=== PATIENT | female | born 1955 | race Caucasian/White ===

== ENCOUNTER 2017-03-26 10:03 | Outpatient (CLI) | payer BC ==
[2014-08-19 11:05] VITALS: BMI 41.9
--- NOTE | ~2017-03-26 | OP ---
PATIENT NAME: YELENA QUINTERO MEDICAL RECORD: [id number] :55 LOCATION:[facility] ADMISSION DATE: SURGEON: DALLAS LEUNG MD OPERATION DATE: 03/26/17 PROCEDURES: 1. Percutaneous transluminal coronary angioplasty stent left anterior descending. 2. Percutaneous transluminal coronary angioplasty stent right coronary artery. 3. Intravascular ultrasound left anterior descending and right coronary artery. 4. Left heart catheterization. 5. Selective coronary angiography. 6. Left ventriculogram. INDICATION: Unstable angina. PROCEDURE IN DETAIL: After informed consent was obtained and after detailed explanation of risks, benefits, as well as alternative therapies, the patient elected to proceed with angiogram and angioplasty. The right radial area was prepped and draped in a normal sterile fashion. The right radial artery was cannulated via modified Seldinger technique with placement of 6-Luxembourgish sheath. All catheters exchanged through this sheath. FINDINGS: Left ventriculogram was performed in standard 30 degree SEN view, reveals good cardiac wall motion throughout all segments. Overall ejection fraction estimated at 60%. SELECTIVE CORONARY ANGIOGRAPHY: 1. Left main is with no significant angiographic disease. 2. Left anterior descending has a 65-70% stenosis proximally confirmed by intravascular ultrasound. 3. Left circumflex shows mild irregularities but no flow-limiting stenosis. 4. The right coronary artery has a 75% stenosis in the mid vessel confirmed by intravascular ultrasound. PTCA STENT OF THE LEFT ANTERIOR DESCENDING AND RIGHT CORONARY ARTERY: The left anterior descending was addressed with a 3.5 X 22 millimeter Woodrow, the right coronary artery with a 3.5 X 18 millimeter Woodrow. The result was 0% residual stenosis. OVERALL IMPRESSION: Successful percutaneous transluminal coronary angioplasty stent of the right coronary artery and left anterior descending both coming from approximately 70-75% initial stenosis to 0% residual stenosis. DALLAS LEUNG MD CC: [id number] DICTATION DATE: 03/26/17 1400 NUCLEAR UNIT OPERATOR: DM 03/27/17 1237 [facility] ER 03/26/17 [facility] [address] [place] [address]
--- NOTE | ~2017-03-26 | HEMODYNAMI ---
PATIENT:YELENA QUINTERO MEDICAL RECORD: [id number] : 55 [id number] AD[facility]ION DATE: 03/26/17 Generatedon:03/26/201712:12 Patient name: YELENA QUINTERO Patient #: [id number] SSN: DO B: 1955 Date of study: 03/26/2017 Page: Of Hemodynamic Procedure Report Patient Data Patient Demographics Procedure consent was obtained First Name: YELENA Gender: Female Last Name: INGRID : 1955 [facility] Initial: G Age: 61 year(s) Patient #: [id number] Race: Ethnicity: or Additional ID: [id number] Contact details [address]: [address] [place] [address] State: [place] City: [place] Zip code: [address] Past Medical History Allergies: No known allergies Admission Admission Data Admission Date: 03/26/2017 Admission Time: 9:24 Procedure Procedure Types Cath Procedure Diagnostic Procedure LHC LHC w/Coronaries FFR/IVUS Intra-Coronary IVUS Initial Intra-Coronary IVUS Additional PCI Procedure Coronary Stent Initial x2 Miscellaneous Procedures Moderate Sedation up to 15 minutes Procedure Description Procedure Date Procedure Date: 03/26/2017 Procedure Start Time: 11:41 Procedure End Time: 12:11 Procedure Staff Name Function Jimmy Scherer MD Performing Physician Mauro Deras RT Scrub Breanna Madrigal RN Nurse Patrice Llamas RT Monitor Kali Treviño RN Icing Maker Procedure Data Cath Procedure Fluoroscopy Diagnostic fluoroscopy Total fluoroscopy Time: 6.7 time: 6.7 min min Diagnostic fluoroscopy Total fluoroscopy dose: dose: 1231 mGy 1231 mGy Contrast Material Contrast Material Type Amount (ml) Isovue 300 150 Entry Location Entry Primary Successful Side Size Upsize Upsize Entry Closure Garcia ccessful Closure Location (Fr) 1 (Fr) 2 (Fr) Remarks Device Remarks Radial Right 6 Fr Mechanical artery Short Compression Estimated blood loss: 10 ml Diagnostic catheters Device Type Used For End Catheter Placement Diagnostic Terumo 5Fr Procedure [place] 110cm catheter Procedure Medications Medication Administration Route Dosage Oxygen NC 2 l/min Heparin Flush Bag added to field 2 bags (1000units/500ml NS) Lidocaine 2% added to field 20 Radial Cocktail added to field 1 syringe (Verapomil 2mg/Nitro 400mcg/Heparin 1500units) Radial Cocktail I.A. 1 syringe (Verapomil 2mg/Nitro 400mcg/Heparin 1500units) Versed I.V. 1 mg Fentanyl I.V. 50 mcg Versed I.V. 1 mg Fentanyl I.V. 50 mcg Fentanyl I.V. 50 mcg Heparin Bolus I.V. 4000 units Integrilin (Bolus I.V. 10.7 ml 2mg/ml) Plavix P.O. 600 mg Hemodynamics Rest Heart Rate: 56 (bpm) Pressure Samples Time Site Value (mmHg) Purpose Heart Use Rate(bpm) 11:46 LV 106/20,21 Snapshot 58 Snapshots Pre Cath Intra NCS Post Cath Vital Signs Time Heart Resp SPO2 NIBP (mmHg) Rhythm Pain Status Sedation Rate (ipm) (%) Level (bpm) 11:34:18 56 16 98 118/84(104) NSR 5 (11) , 10(A) Very distressing 11:39:17 57 18 96 Measuring NSR 0 (11) , No 10(A) pain 11:39:21 57 20 96 141/72(123) NSR 0 (11) , No 10(A) pain 11:44:20 58 16 95 Measuring NSR 0 (11) , No 10(A) pain 11:44:28 58 16 95 141/74(106) NSR 0 (11) , No 9(A) pain 11:48:38 57 19 95 138/73(102) NSR 0 (11) , No 9(A) pain 11:52:52 57 16 96 143/70(116) NSR 0 (11) , No 9(A) pain 11:57:06 60 16 96 153/72(116) NSR 0 (11) , No 9(A) pain 12:01:24 58 13 96 152/75(106) NSR 0 (11) , No 9(A) pain 12:05:34 63 19 96 147/80(118) NSR 0 (11) , No 9(A) pain 12:08:30 64 20 97 160/78(116) NSR 0 (11) , No 10(A) pain Medications Time Medication Route Dose Verified Delivered Reason Note s Effectiveness by by 11:38:06 Oxygen NC 2 l/min Jimmy Breanna Per physician Niesha Madrigal RN 11:38:13 Heparin Flush added 2 bags Jimmy Marquez used for Bag to Niesha Scherer MD procedure (1000units/500ml field NS) 11:38:19 Lidocaine 2% added 20ml Jimmy Jimmy used for to vial Niesha Scherer MD procedure field 11:38:26 Radial Cocktail added 1 Jimmy Marquez used for (Verapomil to syringe Niesha Scherer MD procedure 2mg/Nitro field 400mcg/Heparin 1500units) 11:40:39 Versed I.V. 1 mg Jimmy Breanna for sedation Niesha Madrigal RN 11:40:52 Fentanyl I.V. 50 mcg Jimmy Breanna for sedation Niesha Madrigal RN 11:42:27 Versed I.V. 1 mg Jimmy Breanna for sedation Niesha Madrigal RN 11:42:33 Fentanyl I.V. 50 mcg Jimmy Breanna for sedation Niesha Madrigal RN 11:44:43 Fentanyl I.V. 50 mcg Jimmy Breanna for sedation Niesha Madrigal RN 11:45:58 Radial Cocktail I.A. 1 Jimmy Jimmy for (Verapomil syringe Niesha Scherer MD vasodilation 2mg/Nitro 400mcg/Heparin 1500units) 11:50:48 Heparin Bolus I.V. 4000 Jimmy Breanna for dose units Niesha Madrigal RN anticoagulation verified wtih dr scherer 11:58:44 Integrilin I.V. 10.7 ml Jimmy Breanna for wast ed (Bolus 2mg/ml) Niesha Madrigal RN antiplatelet 9.3 ml therapy 12:08:51 Plavix P.O. 600 mg Jimmy Breanna for Niesha Madrigal RN antiplatelet therapy Procedure Log Time Note 11:20:30 ACC Patient presents with Unstable Angina CCS Anginal Class 3--Marked limitation of physical activity, angina occurs with ordinary activity.. 11:20:31 Diagnostic Cath status Urgent 11:20:44 Kali Treviño RN sent for patient. Start room use. 11:20:47 Time tracking: Regular hours 11:20:52 Plan of Care:Hemodynamics will remain stable., Cardiac rhythm will remain stable., Comfort level will be maintained., Respiratory function will remain adequate., Patient/ family verbilizes understanding of procedure., Procedure tolerated without complication., Recovers from procedure without complications.. 11:33:03 Patient received from ED to CCL 2 Alert and oriented. Tansferred to table in Supine position. 11:33:05 Vital chart was started 11:33:05 Warm blankets applied, and juan hugger turned on for patient comfort. 11:33:06 Correct patient and procedure confirmed by team. 11:33:08 Signed procedure consent form obtained from patient. 11:33:12 ECG and BP/O2 sat monitors applied to patient. 11:34:30 Baseline sample Acquired. 11:34:36 Rhythm: sinus bradycardia 11:34:38 Full Disclosure recording started 11:34:43 H&P Date Dictated: 03/26/2017 ER History on chart.. 11:34:45 Pre-procedure instructions explained to patient. 11:34:45 Pre-op teaching completed and patient verbalized understanding. 11:34:48 Family unavailable. 11:35:33 Patient NPO since Breakfast. 11:35:55 Patient allergic to No known allergies 11:35:59 Is the patient allergic to Iodine/contrast media? No. 11:36:01 Is patient on blood thinner?No 11:36:03 Patient diabetic? Yes. 11:36:06 If diabetic: On Metformin? No 11:36:15 ----Pre-sedation anethsthesia assessment.---- 11:36:18 Previous problem with sedation/anesthesia? No ? 11:36:20 Snore? Yes 11:36:22 Sleep apnea? Yes 11:36:23 Deviated septum? No 11:36:24 Opens mouth fully? Yes 11:36:27 Sticks out tongue? Yes 11:36:32 Airway obstruction? No ? 11:36:40 Dentures? Yes IN TIGHT 11:36:51 Pre procedure: right dorsailis pedis pulse 2+ Normal; easily identifiable; not easily obliterated 11:37:15 Patient pain scale 5/10 PRESSURE. 11:37:28 IV patent on arrival in left antecubital with 0.9% NaCl at [facility]. 11:37:35 Right Radial & Right Groin area was prepped with chlora-prep and draped in sterile fashion 11:37:36 Alarms reviewed by R. N. 11:37:37 Sharps counted by scrub and verified by R.N. 11:38:06 Oxygen 2 l/min NC was administered by Breanna Madrigal RN; Per physician; 11:38:13 Heparin Flush Bag (1000units/500ml NS) 2 bags added to field was administered by Jimmy Scherer MD; used for procedure; 11:38:19 Lidocaine 2% 20ml vial added to field was administered by Jimmy Scherer MD; used for procedure; 11:38:26 Radial Cocktail (Verapomil 2mg/Nitro 400mcg/Heparin 1500units) 1 syringe added to field was administered by Jimmy Scherer MD; used for procedure; 11:40:20 Physician arrived 11:40:20 --------ALL STOP TIME OUT------ 11:40:21 Final Timeout: patient, procedure, and site verified with staff and physician. All members of the team are in agreement. 11:40:23 Right Radial & Right Groin site verified by team. 11:40:27 Physical assessment completed. ASA score P 2 - A patient with mild systemic disease as per Jimmy Scherer MD. 11:40:31 Sedation plan: IV Moderate Sedation Versed, Fentanyl 11:40:39 Versed 1 mg I.V. was administered by Breanna Madrigal RN; for sedation; 11:40:52 Fentanyl 50 mcg I.V. was administered by Breanna Madrigal RN; for sedation; 11:41:28 Use device set Radial Dx 11:41:30 Acist Syringe opened to sterile field. 11:41:31 Medline Cath Pack opened to sterile field. 11:41:32 Bag Decanter opened to sterile field. 11:41:33 Terumo 6Fr Slender Glidesheath opened to sterile field. 11:41:34 St Tito 260cm J .035 wire opened to sterile field. 11:41:34 Acist Hand Control opened to sterile field. 11:41:35 Acist Manifold opened to sterile field. 11:41:35 Tegaderm 4 x 4 opened to sterile field. 11:41:36 MBrace Wrist Support opened to sterile field. 11:41:40 Procedure started. 11:41:46 Local anesthetic to right radial artery with Lidocaine 2% by Jimmy Scherer MD.INITIAL ACCESS ONLY 11:42:27 Versed 1 mg I.V. was administered by Breanna Madrigal RN; for sedation; 11:42:33 Fentanyl 50 mcg I.V. was administered by Breanna Madrigal RN; for sedation; 11:44:43 Fentanyl 50 mcg I.V. was administered by Breanna Madrigal RN; for sedation; 11:44:55 Zero performed for pressure channel P1 11:45:41 A 6 Fr Short sheath was inserted into the Right Radial artery 11:45:57 A Diagnostic Sapato.ru 5Fr [place] 110cm catheter was advanced over the wire and used for Procedure. 11:45:58 Radial Cocktail (Verapomil 2mg/Nitro 400mcg/Heparin 1500units) 1 syringe I.A. was administered by Jimmy Scherer MD; for vasodilation; 11:46:52 LV hemodynamics recorded. 11:46:54 LV gram done using SEN 11:46:59 EF : 60 % 11:47:16 RCA angiography performed. 11:48:29 LCA angiography performed. 11:48:55 Catheter removed. 11:49:15 GOING TO IVUS THE RCA MID AND LAD 11:49:59 Palmer AMVONETisper J 300cm 0.014 guide wire opened to sterile field. 11:50:12 Cambly BasixCompak Inflation Kit opened to sterile field. 11:50:46 Cordis 6FR XBLAD 3.5 guide catheter opened to sterile field. 11:50:48 Heparin Bolus 4000 units I.V. was administered by Breanna Madrigal RN; for anticoagulation; dose verified wtih dr scherer 11:51:03 Kinderhook Tangirnaq Eagleye IVUS Catheter opened to sterile field. 11:51:19 6 Fr XBLAD 3.5 guide catheter was inserted over the wire 11:52:42 WHISPER wire advanced. 11:53:26 LAD 11:53:42 FFR/IVUS 11:55:06 IVUS catheter advanced over wire. 11:55:08 IVUS pass to LAD lesion performed. 11:55:10 IVUS catheter removed over wire. 11:55:25 LESION 68.3% 11:57:18 Inflation Number: 1 A [place] OTW 3.5 x 22 stent was prepped and advanced across the Prox LAD. The stent was deployed at 11 MISTY for 0:10 (min:sec). 11:58:19 Stent catheter was removed intact over wire. 11:58:21 Wire removed. 11:58:21 Guide catheter removed. 11:58:24 Medtronic Launcher 6Fr AR 2.0 guide catheter opened to sterile field. 11:58:44 Integrilin (Bolus 2mg/ml) 10.7 ml I.V. was administered by Breanna Madrigal RN; for antiplatelet therapy; wasted 9.3 ml 11:58:49 6 Fr AR 2 guide catheter was inserted over the wire 11:59:05 WHISPER wire advanced. 12:00:11 FFR/IVUS 12:02:48 IVUS catheter advanced over wire. 12:02:53 IVUS pass to RCA lesion performed. 12:02:54 IVUS catheter removed over wire. 12:03:11 LESION 79% RCA 12:03:49 Inflation Number: 1 A Woodrow OTW 3.5 x 18 stent was prepped and advanced across the Mid RCA. The stent was deployed at 11 MISTY for 0:10 (min:sec). 12:03:53 Stent catheter was removed intact over wire. 12:03:54 Wire removed. 12:03:55 Guide catheter removed. 12:04:06 Terumo TR Band Large opened to sterile field. 12:05:31 Sheath removed intact; hemostasis achieved with Mechanical Compression to the Right Radial artery. 12:05:37 Procedure ended.(Physican Out) 12:05:53 Fluoroscopy time 06.70 minutes. 12:06:09 Fluoroscopy dose: 1231 mGy 12:06:09 Flurop Dose total: 1231 12:06:19 Contrast amount:Isovue 300 150ml. 12:06:20 Sharps counted by scrub and verified by R.N. 12:06:44 Procedure type changed to Cath procedure, Diagnostic procedure, LHC, LHC w/Coronaries, FFR/IVUS, Intra-Coronary IVUS Initial, Intra-Coronary IVUS Additional, PCI procedure, Coronary Stent Initial x2, Miscellaneous Procedures, Moderate Sedation up to 15 minutes 12:07:42 TR band inflated with 10cc of air. 12:08:11 Insertion/operative site no bleeding no hematoma. 12:08:43 Post right radial artery:stable 12:08:51 Plavix 600 mg P.O. was administered by Breanna Madrigal RN; for antiplatelet therapy; 12:10:27 Post-procedure physical assessment completed. ASA score P 2 - A patient with mild systemic disease as per Jimmy Scherer MD. 12:10:32 Post procedure rhythm: unchanged. 12:10:35 Estimated blood loss: 10 ml 12:10:37 Post procedure instruction explained to patient.Patient verbalizes understanding. 12:10:37 Patient needs reinforcement of post procedure teaching. 12:10:38 Procedure and supply charges have been captured, reviewed, submitted and are correct. 12:10:54 Vital chart was stopped 12:10:56 See physician's report for complete and final results. 12:11:40 Report given to Pre/Post Procedure Room. 12:11:44 Patient transfered to Pre/Post Procedure Room with Stretcher. 12:11:46 Procedure ended. 12:11:46 Full Disclosure recording stopped 12:11:50 End room use (Document Last) Intervention Summary Intervention Notes Time ActionType Lesion and Equipment Action# Pressure Duration Attributes Used 11:57:18 Place stent Prox LAD Woodrow OTW 1 11 00:10 3.5 x 22 stent 12:03:49 Place stent Mid RCA Woodrow OTW 1 11 00:10 3.5 x 18 stent Device Usage Item Name Manufacture Quantity Catalog Hospital Part Current Minima l Lot# / Number Charge Number Stock Stock Serial# Code Acist Acist 1 70613 478891 992526 203738 20 Syringe Medical Systems Inc Medline Cardinal 1 [id number] 366163 09969 037243 5 Cath Pack Health Bag Microtek 1 2001S 523923 86538 758876 5 Elixent Inc. Terumo 6Fr Terumo 1 [id number] 257641 167350 623498 [address] Tito St Tito 1 018200 703842 439638 485767 30 260cm J .035 wire Acist Hand Acist 1 07745 072659 832834 581847 5 Control Medical Systems Inc Acist Acist 1 62221 342369 849044 303648 5 Trigemina Systems Inc Tegaderm 4 3M 1 1626W 688894 418151 152540 5 x 4 MBrace Advanced 1 140-0250-00 092155 86485 967834 5 Wrist Vascular Support Dynamics Diagnostic Terumo 1 59-0123 678060 913983 239861 5 Terumo 5Fr [place] 110cm catheter Palmer Palmer 1 [id number] 451540 432823 229670 5 Whisper J Vascular 300cm 0.014 guide wire Merit Merit 1 ON4284 676878 297032 307644 15 [employer] Medical Inflation Kit Cordis 6FR Cardinal 1 [id number] 262510 765774 535634 10 XBLAD 3.5 Health guide catheter Kinderhook Kinderhook 1 [id number] 068772 271521 304048 8 Tangirnaq Eagleye IVUS Catheter [place] OTW Medtronic 1 [id number] 439134 4614488 927050 5 [id number] 3.5 x 22 stent Medtronic Medtronic 1 [id number] 112633 40209 296630 1 Launcher 6Fr [place] 2.0 guide catheter [place] OTW Medtronic 1 [id number] 393374 5647007 789318 5 [id number] 3.5 x 18 stent Terumo TR Terumo 1 [id number] 471074 595522 732873 40 Band Large Signature Audit [place] Stage Time Signature Unsigned Intra-Procedure 03/26/2017 Patrice Llamas 12:12:24 PM RT(R) (CV) Signatures Monitor : Patrice Llamas RT Signature : Date : Time : [facility] [address] [place], [place] [address]
[~2017-03-26 10:03] MED LIST: ACTOS30 MG PO; ALPHAGAN P15 ML EACH EYE; BENTYL10 MG PO; COLACE100 MG PO; EFFEXOR25 MG PO; ELIQUIS2.5 MG PO; ESTRACE1 MG PO; HYDROCODON-ACE1 EAC7 PO; HYDROCODONE-APA1 TAB PO; HYZAAR 100-25 T1 TAB PO; JANUVIA25 MG PO; LIPITOR20 MG PO; MULTIPLE VITAMI1 TA1 PO; NUVIGIL250 MG PO; PREVACID30 MG PO; REGLAN10 MG PO; SENOKOT-S TABLE1 TAB PO; TRAVATAN Z2.5 ML EACH EYE; VERELAN180 MG PO
[2017-03-26 10:29] LABS: BASOPHILS 0.3 % (0-2); EOSINOPHILS 3.1 % (0-7); HEMATOCRIT 39.3 % (36.0-48.0); HEMOGLOBIN 12.7 g/dL (12-16); IMMATURE GRANULOCYTES 0.1 % (0-5); MCH 26.8 pg (26.0-34.0); MCHC 32.3 g/dL (31.0-37.0); MCV 82.9 fL (80.0-100.0); MEAN PLATELET VOLUME 10.3 fL (7.4-10.4); MONOCYTES 6.7 % (2-11); NEUTROPHILS 54.8 % (40-80); RBC 4.74 10x6/uL (4.00-5.40); RDW 15.1 % (11.5-14.5)
[2017-03-26 10:30] LABS: PLATELET COUNT 228 10x3/uL (130-400)
[2017-03-26 10:48] LABS: ALBUMIN 3.8 g/dL (3.4-5.0); ALKALINE PHOSPHATASE 125 U/L (46-116); ALT (SGPT) 46 U/L (10-68); BILIRUBIN - TOTAL 0.42 mg/dL (0.2-1.3); CALC OSMOLALITY 283 mosm/kg (275-300); CALCIUM 9.2 mg/dL (8.5-10.1); CHLORIDE - SERUM 100 mmol/L (98-107); CREATININE - SERUM 0.9 mg/dL (0.6-1.3); POTASSIUM - SERUM 3.3 mmol/L (3.5-5.1); PROTEIN - SERUM 8.2 g/dL (6.4-8.2); SODIUM 140 mmol/L (136-145); UREA NITROGEN 8 mg/dL (7-18); eGFR NON AFRICAN AMERICAN 67 mL/min (90-120)
[2017-03-26 10:51] LABS: GLUCOSE 221 mg/dL (74-106)
[2017-03-26 10:59] LABS: CHOL - HDL RATIO 3.1 ratio (2.3-4.1); CHOLESTEROL, TOTAL 206 mg/dL (0-200); CKMB 0.4 U/L (0.0-3.6); CREATINE KINASE 112 UL (21-215); HDL CHOLESTEROL 67 mg/dL (32-96); LDL CHOLESTEROL 107 mg/dL (0-100); LDL-HDL RATIO 1.6 ratio (1.5-3.5); TRIGLYCERIDE 163 mg/dL (30-200)
[2017-03-26 11:02] LABS: TROPONIN-I < 0.017 ng/mL (0.000-0.060)
[2017-03-26] MEDS ORDERED: PLAVIX75 MG PO (12:37)
--- NOTE | 2017-03-26 12:45 | NUR ---
RIGHT WRIST WITH TR BAND INTACT, NO BLEEDING AT SITE, VSS, NSR
[2017-03-26] MEDS ORDERED: ACTOS30 MG PO (13:02)
[2017-03-26] MEDS ORDERED: ZOLOFT50 MG PO (13:03)
[2017-03-26] MEDS ORDERED: GLIMEPIRIDE2 MG PO (13:03)
[2017-03-26] MEDS ORDERED: BYSTOLIC5 MG PO (13:04)
--- NOTE | 2017-03-26 13:25 | NUR ---
TR BAND REMAINS TO R/WRIST CDI NO BLEEDING NO HEMATOMA NOTED VSS WITH CHEST PAIN DENIED. SANDWICH AND SODA TO BEDSIDE.
--- NOTE | 2017-03-26 13:45 | NUR ---
CHEST PAIN DENIED WITH VSS. TR BAND REMAINS TO R/WRIST CDI. PATIENT TOLERATED LUNCH WITH NO NAUSEA
--- NOTE | 2017-03-26 15:45 | NUR ---
IV D'C WITH CATH TIP INTACT, TR BAND OFF WITH BANDAID APPLIED, BRACE IN PLACE, WRITTEN AND VERBAL INSTRUCTIONS GIVEN TO PT AND DAUGHTER AND UNDERSTOOD. D'C HOME WITH DAUGHTER AND COUSIN
--- NOTE | 2017-03-27 10:17 | HP ---
PATIENT: YELENA QUINTERO MEDICAL RECORD: [id number] ACCOUNT: [id number] LOCATION:[facility] : 55 ADMISSION DATE: 03/26/17 HISTORY AND PHYSICAL EXAMINATION PROBLEM LIST: 1. Unstable angina. 2. Coronary artery disease. 3. Hypertension. 4. Hyperlipidemia. HISTORY OF PRESENT ILLNESS: The patient has a past history of hypertension and hyperlipidemia. She underwent cardiac catheterization approximately five years ago revealing minimal disease. No intervention was undertaken at that time. She has now had two days of increasing chest pain and chest discomfort very compatible with angina. She continues to have pain at a 5/10 despite multiple medications. PHYSICAL EXAMINATION: HEAD, EYES, EARS, NOSE, AND THROAT: Benign. NECK: Supple. No jugular venous distention. Carotid upstroke plus two bilaterally without bruits. LUNGS: Overall clear to auscultation and percussion. HEART: Regular. Normal S1, normal S2. No S3, no S4. No murmurs. BONES, JOINTS, EXTREMITIES: No clubbing, cyanosis, or edema. OVERALL IMPRESSION: Chest pain compatible with angina in a continued fashion. Most likely she has hemodynamically significant coronary artery disease. Will proceed with coronary angiography. Further care depends upon the findings of the angiography. DALLAS LEUNG MD at 1017 CC: [id number] DICTATION DATE: 03/26/17 1000 CIRCULAR KNITTER HELPER: HIMANSHU 03/27/[address] [facility] ER 03/26/17 [facility] [address] [place] [id number]
== END 2017-03-26 15:45 ==
LOC: D.CATH 10:03 → D.ER 11:08 → EDSTATUS 11:45 → D.CATH 15:45
PROVIDERS: Emergency Medicine
DX: R07.9 Chest pain, unspecified (principal); I20.0 Unstable angina; I10 Essential (primary) hypertension; G47.30 Sleep apnea, unspecified

== ENCOUNTER → 2017-10-22 11:45 | Outpatient (CLI) | payer BC ==
[2014-08-19 11:05] VITALS: BMI 41.9
[~2017-10-22 11:45] MED LIST changes: +BYSTOLIC5 MG PO; +GLIMEPIRIDE2 MG PO; +PLAVIX75 MG PO; +ZOLOFT50 MG PO
== END | disposition home or self-care (01) ==
LOC: D.LABREF 11:45
DX: R42 Dizziness and giddiness (principal); R06.02 Shortness of breath; E83.42 Hypomagnesemia

== ENCOUNTER → 2017-12-07 12:58 | Outpatient (CLI) | payer BC ==
[2014-08-19 11:05] VITALS: BMI 41.9
== END | disposition home or self-care (01) ==
LOC: D.RT 11-15 10:00
DX: R06.02 Shortness of breath (principal)

== ENCOUNTER → 2018-01-25 23:48 | Outpatient (CLI) | payer BC ==
[2014-08-19 11:05] VITALS: BMI 41.9
== END | disposition home or self-care (01) ==
LOC: D.MAMMO 09:00
DX: N63.11 Unspecified lump in the right breast, upper outer quadrant (principal)

== ENCOUNTER → 2018-01-30 10:21 | Outpatient (CLI) | payer BC ==
[2014-08-19 11:05] VITALS: BMI 41.9
== END | disposition home or self-care (01) ==
LOC: D.US 10:21
DX: R92.8 Other abnormal and inconclusive findings on diagnostic imaging of breast (principal); N63.11 Unspecified lump in the right breast, upper outer quadrant

== ENCOUNTER → 2018-12-20 13:31 | Outpatient (CLI) | payer BC ==
[2014-08-19 11:05] VITALS: BMI 41.9
== END | disposition home or self-care (01) ==
LOC: D.NM 12-17 09:00
PROVIDERS: ATTEND Family Medicine
DX: R07.9 Chest pain, unspecified (principal); R06.09 Other forms of dyspnea

== ENCOUNTER → 2019-01-29 07:33 | Outpatient (CLI) | payer BC ==
[2014-08-19 11:05] VITALS: BMI 41.9
[2019-01-30 18:07] LABS: ANA REFLEX - DIRECT Negative (Negative)
== END | disposition home or self-care (01) ==
LOC: D.RT 01-21 13:00 → D.LAB 01-21 14:00 → D.RT 07:33
PROVIDERS: ATTEND Internal Medicine Pulmonary Disease
DX: J45.909 Unspecified asthma, uncomplicated (principal); R93.89 Abnormal findings on diagnostic imaging of other specified body structures; I50.32 Chronic diastolic (congestive) heart failure

== ENCOUNTER → 2019-10-02 14:41 | Outpatient (CLI) | payer BC ==
[2014-08-19 11:05] VITALS: BMI 41.9
== END | disposition home or self-care (01) ==
LOC: D.RAD 14:41
PROVIDERS: ATTEND Family Medicine
DX: R06.02 Shortness of breath (principal)

== ENCOUNTER 2021-03-11 07:00 | Day surgery (SDC) | payer BC ==
[~2021-03-11] VITALS: Ht 167.6 cm; Wt 125.7 kg
--- NOTE | ~2021-03-11 | HEMODYNAMI ---
PATIENT:YELENA QUINTERO MEDICAL RECORD: [id number] : 55 LOCATION:[facility] ADMISSION DATE: 03/11/21 Generatedon:19:18 Patient name: YELENA QUINTERO Patient #: [id number] SSN: [id number] : 1955 Date of study: 03/11/2021 Page: Of Hemodynamic Procedure Report Patient Data Patient Demographics Procedure consent was obtained First Name: YELENA Gender: Female Last Name: INGRID : 1955 Middle Initial: Krystal Age: 65 year(s) Patient #: [id number] Race: Ethnicity: or SSN: [id number] Additional ID: [id number] Contact details [address]: [address] [place] [address] State: [place] City: [place] Zip code: [address] Past Medical History Allergies: No known allergies Admission Admission Data Admission Date: 03/11/2021 Admission Time: 7:00 Arrival Date: 03/11/2021 Arrival Time: 0:00 Admit Source: Other Insurance Payor: Private health insurance [facility] #: [id number] Height (in.): 65 BSA: 2.27 (m2) Height (cm.): 165.1 BMI: 46.09 (kg/m2) Weight (lbs.): 277 Weight (kg.): 125.65 Lab Results Lab Result Date: 03/11/2021 Lab Result Time: 0:00 Biochemistry Name Units Result Min Max BUN mg/dl 17 --(---*)-- 7 18 Creatinine mg/dl 0.9 --(-*--)-- 0.6 1.3 CBC Name Units Result Min Max Hemoglobin g/dl 13 -*(----)-- 13.5 17.5 Procedure Procedure Types Cath Procedure Diagnostic Procedure LHC LH w/Coronaries Sedation Charges Moderate Sedation 25-39 minutes Procedure Description Procedure Date Procedure Date: 03/11/2021 Procedure Start Time: 8:57 Procedure End Time: 9:11 Procedure Staff Name Function Saud Al MD Performing Physician Loreto Chan RT Monitor Marcia White RT Scrub Jorge Goode RN Nurse Procedure Data Cath Procedure Fluoroscopy Diagnostic fluoroscopy Total fluoroscopy Time: 2.2 time: 2.2 min min Diagnostic fluoroscopy Total fluoroscopy dose: 621 dose: 621 mGy mGy Contrast Material Contrast Material Type Amount (ml) Isovue 300 57 Entry Location Entry Primary Successful Side Size Upsize Upsize Entry Closure Garcia ccessful Closure Location (Fr) 1 (Fr) 2 (Fr) Remarks Device Remarks Radial Right 6 Fr Mechanical artery Short Compression Estimated blood loss: 5 ml Diagnostic catheters Device Type Used For End Catheter Placement DIAGNOSTIC [place] 110cm 5 Multi-vessel Fr catheter ([id number]) Angiography Procedure Complications No complications Procedure Medications Medication Administration Route Dosage 0.9% NaCl I.V. 100 ml/hr Oxygen etCO2 Nasal cannula 2 l/min Heparin Flush Bag added to field 2 bags (1000units/500ml NS) Lidocaine 2% added to field 20 Radial Cocktail I.A. 1 syringe (Verapamil 2mg/Nitro 400mcg/Heparin 1500units) Versed I.V. 1 mg Fentanyl I.V. 50 mcg Versed I.V. 1 mg Fentanyl I.V. 50 mcg Oxygen etCO2 Nasal cannula 3 l/min Hemodynamics Rest BSA: 2.27 (m2) HGB: 13 (g/dl) O2 Consumption: Estimated: 205.95 (ml/min) O2 Cons umption indexed: Estimated:90.73 (ml/min/m) Heart Rate: 63 (bpm) Pressure Samples Time Site Value (mmHg) Purpose Heart Use Rate(bpm) 9:05 LV 111/-3,1 Snapshot 60 Gradients Valve Time Site Site Mean SEP/DFP Peak To Heart Use 1 2 (mmHg) (sec/min) Peak Rate (mmHg) (bpm) Aortic 9:06 LV AO 70 Snapshots Pre Cath Intra NCS Post Cath Vital Signs Time Heart Resp SPO2 etCO2 NIBP (mmHg) Rhythm Pain Sedation Rate (ipm) (%) (mmHg) Status Level (bpm) 8:35:42 59 25 94 0 158/84(130) NSR 0 (11) 10(A) , No pain 8:39:58 60 18 91 42.7 153/83(126) NSR 0 (11) 10(A) , No pain 8:44:12 61 13 92 42.7 145/84(128) NSR 0 (11) 10(A) , No pain 8:48:24 61 13 92 0 147/82(121) NSR 0 (11) 10(A) , No pain 8:52:38 61 15 92 0 147/75(128) NSR 0 (11) 10(A) , No pain 8:56:50 60 19 91 41.2 152/82(125) NSR 0 (11) 9(A) , No pain 9:01:02 58 11 91 42.7 142/85(119) NSR 0 (11) 9(A) , No pain 9:05:12 62 15 95 44.2 154/83(123) NSR 0 (11) 9(A) , No pain 9:09:28 63 14 93 37.5 153/76(119) NSR 0 (11) 10(A) , No pain Medications Time Medication Route Dose Verified Delivered Reason Notes Effectiveness by by 8:33:51 0.9% NaCl I.V. 100 Saud Buffie used for ml/hr Servando Goode RN procedure 8:34:00 Oxygen etCO2 2 l/min Saud Buffie used for Nasal Servando Goode RN procedure cannula 8:34:08 Heparin Flush added 2 bags Saud Saud used for Bag to Servando Al MD procedure (1000units/500ml field NS) 8:34:17 Lidocaine 2% added 20ml Saud Saud for local to vial Servando Al MD anesthetic field 8:51:50 Versed I.V. 1 mg Saud Buffie for sedation Servando Goode RN 8:51:57 Fentanyl I.V. 50 mcg Saud Buffie for sedation Servando Goode RN 8:57:37 Oxygen etCO2 3 l/min Saud Buffie used for Nasal Servando Goode RN procedure cannula 9:00:13 Versed I.V. 1 mg Saud Buffie for sedation Servando Goode RN 9:00:17 Fentanyl I.V. 50 mcg Saud Buffie for sedation Servando Goode RN 9:03:38 Radial Cocktail I.A. 1 Saud Saud for (Verapamil syringe Servando Al MD vasodilation 2mg/Nitro 400mcg/Heparin 1500units) Procedure Log Time Note 8:20:10 Diagnostic Cath Status : Elective 8:20:24 Admit Source: Other 8:20:27 ACC Patient presents with Stable Angina CCS Anginal Class 2--Slight limitation of ordinary activity. 8:20:30 Procedure Status Elective Heart Cath (OP). 8:20:31 Time tracking: Regular hours (M-F 7:00 - 5:00) 8:20:35 Plan of Care:Hemodynamics will remain stable., Cardiac rhythm will remain stable., Comfort level will be maintained., Respiratory function will remain adequate., Patient/ family verbilizes understanding of procedure., Procedure tolerated without complication., Recovers from procedure without complications.. 8:23:25 Jorge Goode RN sent for patient. Start room use. 8:23:32 H&P Date Dictated: 03/08/2021 Within 30 days and on chart.. 8:23:34 Family in waiting room. 8:23:36 Patient NPO since Midnight. 8:23:47 Patient Height : 65 inches 8:23:50 Patient Weight : 277 lbs 8:23:52 Arrival Date: 03/11/2021 12:00:00 AM 8:24:00 Insurance Payor : Private health insurance 8:24:36 Patient allergic to No known allergies 8:33:51 0.9% NaCl 100 ml/hr I.V. was administered by Jorge Goode RN; used for procedure; Verbal order read back and verified. 8:34:00 Oxygen 2 l/min etCO2 Nasal cannula was administered by Jorge Goode RN; used for procedure; Verbal order read back and verified. 8:34:08 Heparin Flush Bag (1000units/500ml NS) 2 bags added to field was administered by Saud Al MD; used for procedure; Verbal order read back and verified. 8:34:17 Lidocaine 2% 20ml vial added to field was administered by Saud Al MD; for local anesthetic; Verbal order read back and verified. 8:34:32 Vital chart was started 8:39:23 Patient received from Pre/Post Procedure Room to CCL 1 Alert and oriented. Tansferred to table in Supine position. 8:39:25 Signed procedure consent form obtained from patient. 8:39:26 Warm blankets applied, and juan hugger turned on for patient comfort. 8:39:26 Correct patient and procedure confirmed by team. 8:39:27 ECG and BP/O2 sat monitors applied to patient. 8:39:28 Baseline sample Acquired. 8:39:31 Rhythm: sinus rhythm 8:39:32 Full Disclosure recording started 8:39:33 Pre-procedure instructions explained to patient. 8:39:34 Pre-op teaching completed and patient verbalized understanding. 8:39:36 Is the patient allergic to Iodine/contrast media? No. 8:39:37 Was the patient premedicated? Yes 8:39:38 Is patient on blood thinner?Yes 8:39:42 ACC The patient was administered the following blood thiners within the last 24 hours: ACCAspirin 8:39:44 Patient diabetic? Yes. 8:39:46 If diabetic: On Metformin? No 8:39:50 Previous problem with sedation/anesthesia? No ? 8:39:53 Snore? No 8:39:54 Sleep apnea? No 8:39:55 Deviated septum? No 8:39:56 Opens mouth fully? Yes 8:39:57 Sticks out tongue? Yes 8:40:03 Airway obstruction? Yes ASTHMA 8:40:06 Dentures? No ? 8:40:09 Pre procedure: right dorsailis pedis pulse 2+ Normal; easily identifiable; not easily obliterated 8:40:15 Pre procedure: left dorsailis pedis pulse 2+ Normal; easily identifiable; not easily obliterated 8:40:17 Patient pain scale 0/10 ?. 8:40:23 IV patent on arrival in left antecubital with 0.9% NaCl at KVO. 8:42:13 Lab results completed and on chart. 8:42:18 Right Radial & Right Groin area was prepped with chlora-prep and draped in sterile fashion 8:42:18 Alarms reviewed by R. N. 8:42:19 Sharps counted by scrub and verified by R.N. 8:42:20 Physician arrived 8:42:20 --------ALL STOP TIME OUT------ 8:42:21 Final Timeout: patient, procedure, and site verified with staff and physician. All members of the team are in agreement. 8:42:23 Right Radial & Right Groin site verified by team. 8:42:26 Fire Safety Assessment: A--An alcohol-based skin anteseptic being used preoperatively., C--Open oxygen or nitrous oxide is being used., D--An ESU, laser, or fiber-optic light is being used. 8:42:30 Physical assessment completed. ASA score P 2 - A patient with mild systemic disease as per Saud Al MD. 8:42:37 Sedation plan: IV Moderate Sedation Medication:Versed, Fentanyl 8:42:41 Use device set Radial Dx or PCI 8:42:42 ACIST Syringe (46039) opened to sterile field. 8:42:43 Medline Cath Pack ([id number]) opened to sterile field. 8:42:43 Bag Decanter (2002S) opened to sterile field. 8:42:44 ACIST Hand Control (48937) opened to sterile field. 8:42:44 ACIST Manifold (68164) opened to sterile field. 8:42:44 Tegaderm 4 x 4 (1626W) opened to sterile field. 8:42:45 MBrace Wrist Support ([id number]) opened to sterile field. 8:42:46 NEEDLE Cook 21G 4cm Radial (K97590) opened to sterile field. 8:42:48 SHEATH 6FR RAIN (1465000) opened to sterile field. 8:42:50 EMERALD Guide Wire (262-717) opened to sterile field. 8:51:50 Versed 1 mg I.V. was administered by Jorge Goode RN; for sedation; Verbal order read back and verified. 8:51:57 Fentanyl 50 mcg I.V. was administered by Jorge Goode RN; for sedation; Verbal order read back and verified. 8:54:28 Lab Result : Hemoglobin 13 g/dl 8:54:28 Lab Result : Creatinine 0.9 mg/dl 8:54:28 Lab Result : BUN 17 mg/dl 8:55:32 Procedure started. 8:57:19 Local anesthetic to right radial artery with Lidocaine 2% by Saud Al MD.INITIAL ACCESS ONLY 8:57:37 Oxygen 3 l/min etCO2 Nasal cannula was administered by Jorge Goode RN; used for procedure; Verbal order read back and verified. 8:58:47 Zero performed for pressure channel P1 8:58:53 Zero performed for pressure channel P1 9:00:13 Versed 1 mg I.V. was administered by Jorge Goode RN; for sedation; Verbal order read back and verified. 9:00:17 Fentanyl 50 mcg I.V. was administered by Jorge Goode RN; for sedation; Verbal order read back and verified. 9:02:46 2) 60-89 Mildly reduced kidney function, and other findings (as for stage 1) point to kidney disease. 9:02:52 Maximum allowable contrast dose (3.7 X eGFR X 0.75)185 ml. 9:03:36 A 6 Fr Short sheath was inserted into the Right Radial artery 9:03:38 Radial Cocktail (Verapamil 2mg/Nitro 400mcg/Heparin 1500units) 1 syringe I.A. was administered by Saud Al MD; for vasodilation; Verbal order read back and verified. 9:03:42 A DIAGNOSTIC Charlotte 110cm 5 Fr catheter (160929) was advanced over the wire and used for Multi-vessel Angiography. 9:05:53 LV hemodynamics recorded. 9:05:54 LV gram done using SEN 9:05:56 Injector settings: Ml/sec: 5, Volume: 15\, 9:06:08 EF : 55 % 9:06:40 LCA angiography performed. 9:06:43 Injector settings: Ml/sec: 3, Volume: 6, 9:07:54 RCA angiography performed. 9:07:57 Injector settings: Ml/sec: 3, Volume: 6, 9:08:26 Catheter removed. 9:08:29 ZEPHYR REGULAR TR BAND (689581) opened to sterile field. 9:09:29 Sheath removed intact; hemostasis achieved with Mechanical Compression to the Right Radial artery. 9:09:32 Procedure ended.(Physican Out) 9:09:40 Fluoroscopy time 02.20 minutes. 9:09:44 Fluoroscopy dose: 621 mGy 9:09:44 Flurop Dose total: 621 9:09:50 Dose Area Product 51724 mGy/cm. 9:09:54 Contrast amount:Isovue 300 57ml. 9:10:06 Mouth Of Wilson band inflated with 10cc of air. 9:10:08 Insertion/operative site no bleeding no hematoma. 9:10:14 Post right radial artery:stable 9:10:16 Post Procedure Pulses reassessed and unchanged 9:10:22 Post procedure rhythm: unchanged. 9:10:25 Estimated blood loss: 5 ml 9:10:27 Post procedure instruction explained to patient.Patient verbalizes understanding. 9:10:27 Patient needs reinforcement of post procedure teaching. 9:11:22 Procedure type changed to Cath procedure, Diagnostic procedure, LHC, C w/Coronaries, Sedation Charges, Moderate Sedation 25-39 minutes 9:11:24 Procedure and supply charges have been captured, reviewed, submitted and are correct. 9:11:28 Procedure Complication : No complications 9:11:31 Vital chart was stopped 9:11:33 [facility] Findings: mild to moderate CAD (<70%) 9:11:35 Operative report dictated upon procedure completion. 9:11:36 See physician's report for complete and final results. 9:11:37 Report given to Pre/Post Procedure Room. 9:11:40 Patient transfered to Pre/Post Procedure Room with Stretcher. 9:11:42 Procedure ended. 9:11:42 Full Disclosure recording stopped 9:11:48 End room use (Document Last) 9:17:05 End room use (Document Last) Device Usage Item Name Manufacture Quantity Catalog Hospital Part Current Minima l Lot# / Number Charge Number Stock Stock Serial# Code ACIST Acist 1 80008 067069 370075 251100 20 Syringe Medical (74496) Systems Inc Medline Medline 1 [id number] 51881 884627 5 Cath Pack ([id number]) Bag Microtek 1 2001S 090130 67373 275112 5 Decanter Medical Inc. () ACIST Hand Acist 1 29930 452723 768754 745050 5 Control Medical (72137) Systems Inc ACIST Acist 1 01224 313033 653656 840619 5 Manifold Medical (01669) Systems Inc Tegaderm 4 3M 1 1626W 011118 493276 464038 5 x 4 (1626W) MBrace Advanced 1 140-0250-00 429018 07094 953465 5 Wrist Vascular Support Dynamics ([id number]) NEEDLE Cook [employer] 1 [id number] 687133 472701 428405 5 21G 4cm Radial (C97717) SHEATH 6FR Cardinal 1 [id number] 336189 0876608 780151 5 [facility] (5413352) EMERALD Cardinal 1 502-455 234221 654207 386873 5 Guide Wire Health (969-081) DIAGNOSTIC Terumo 1 69-1501 068623 240478 165917 5 [place] 110cm 5 Fr catheter (992834) ZEPHYR Cardinal 1 462304 136455 7210151 531867 5 REGULAR TR Health BAND (130533) Signature Audit [place] Stage Time Signature Unsigned Intra-Procedure 03/11/2021 Loreto Chan 9:17:05 AM RT(R) Intra-Procedure 03/11/2021 Jorge Goode RN 9:17:40 AM Intra-Procedure 03/11/2021 Saud Al MD 9:17:[address] [facility] [address] [place] [address]
[2021-03-11] MEDS ORDERED: BAYER CHEWABLE81 MG PO (07:34)
[2021-03-11] MEDS ORDERED: ALBUTEROL SULF8.5 GM INH (07:35)
[2021-03-11] MEDS ORDERED: REGLAN10 MG PO (07:36)
[2021-03-11] MEDS ORDERED: NORVASC5 MG PO (07:36)
[2021-03-11] MEDS ORDERED: BENICAR HCT 401 EAC1 PO (07:37)
[2021-03-11] MEDS ORDERED: CALAN SR240 MG PO (07:37)
[2021-03-11] MEDS ORDERED: JANUVIA100 MG PO (07:38)
[2021-03-11] MEDS ORDERED: LOTEMAX 0.5% OPH5 ML EACH EYE (07:39)
[2021-03-11] MEDS ORDERED: LASIX20 MG PO (07:39)
[2021-03-11] MEDS ORDERED: MAG-OX 400 MG400 MG PO (07:40)
[2021-03-11] MEDS ORDERED: SPIRIVA18 MCG INH (07:40)
[2021-03-11] MEDS ORDERED: SINGULAIR10 MG PO (07:41)
[2021-03-11] MEDS ORDERED: K-TAB10 MEQ PO (07:42)
[2021-03-11] MEDS ORDERED: PIOGLITAZONE15 MG PO (07:42)
[2021-03-11] MEDS ORDERED: MULTI-DAY VITAM1 TAB PO (07:43)
[2021-03-11] MEDS ORDERED: MURO-128 OPTH3.5 GM EACH EYE (07:43)
[2021-03-11] MEDS ORDERED: MELATONIN10 M1 PO (07:43)
[2021-03-11] MEDS ORDERED: VITAMIN D325 MC1 PO (07:44)
[2021-03-11 08:04] VITALS: BP 140/68; Ht 167.6 cm; Wt 125.7 kg
[2021-03-11 08:32] LABS: BASOPHILS 0.8 % (0-2); EOSINOPHILS 3.1 % (0-7); HEMATOCRIT 39.4 % (36.0-48.0); LYMPHOCYTES 24.1 % (15-50); MCHC 32.9 g/dL (31.0-37.0); MCV 79.1 fL (80.0-100.0); MEAN PLATELET VOLUME 8.3 fL (7.4-10.4); MONOCYTES 8.8 % (2-11); NEUTROPHILS 63.2 % (40-80); PLATELET COUNT 235 10x3/uL (130-400); RBC 4.98 10x6/uL (4.00-5.40); RDW 17.3 % (11.5-14.5); WBC 7.1 10x3/uL (4.8-10.8)
[2021-03-11 08:38] LABS: ANION GAP 13.3 mmol/L (8-16); CALCIUM 9.2 mg/dL (8.5-10.1); CARBON DIOXIDE 28.6 mmol/L (21.0-32.0); CREATININE - SERUM 0.9 mg/dL (0.6-1.3); POTASSIUM - SERUM 3.9 mmol/L (3.5-5.1)
[2021-03-11 09:21] LABS: CHOL - HDL RATIO 2.5 ratio (2.3-4.1); LDL-HDL RATIO 1.2 ratio (1.5-3.5)
--- NOTE | 2021-03-11 09:24 | NUR ---
PT ARRIVED BY STRETCHER. PLACED ON MONITORS. ASSESSMENT COMPLETED. VSS AT THIS TIME. PT RESTING COMFORTABLY. FAMILY AT BEDSIDE. DR. WINN ROUNDED AND SPOKE WITH PT AND PT'S FAMILY.
--- NOTE | 2021-03-11 09:40 | NUR ---
PT RESTING COMFORTABLY. VSS. RIGHT WRIST Z BAND IN PLACE. NO BLEEDING/HEMATOMA NOTED.
--- NOTE | 2021-03-11 10:10 | NUR ---
PT RESTING COMFORTABLY. VSS. RIGHT WRIST Z BAND IN PLACE. NO BLEEDING/HEMATOMA NOTED. PT DENIES NAUSEA/PAIN. GIVEN COFFEE TO DRINK PER PT REQUEST.
--- NOTE | 2021-03-11 10:30 | NUR ---
2cc OF AIR REMOVED FROM RIGHT RADIAL Z BAND. NO BLEEDING/HEMATOMA NOTED. VSS. PT DENIES NAUSEA. TOLERATING COFFEE. DOES NOT WANT FOOD AT THIS TIME.
--- NOTE | 2021-03-11 10:45 | NUR ---
3cc OF AIR REMOVED FROM Z BAND. NO BLEEDING/HEMATOMA NOTED. VSS AT THIS TIME. PT DENIES NAUSEA/PAIN. CALL LIGHT WITHIN REACH. RESTING COMFORTABLY.
--- NOTE | 2021-03-11 11:04 | NUR ---
3CC OF AIR REMOVED FROM TR BAND WITH NO BLEEDING NOTED. VSS. WILL CONTINUE TO MONITOR.
--- NOTE | 2021-03-11 11:20 | NUR ---
LEFT PIV D/C'D WITH CATHETER INTACT, BAND AID TO SITE. RIGHT WRIST Z BAND IN PLACE WITH NO BLEEDING NOTED. UP TO BEDSIDE TO GET DRESSED. AMBULATED TO RESTROOM.
--- NOTE | 2021-03-11 11:33 | NUR ---
REMAINING AIR REMOVED FROM Z BAND AND DRESSING PLACED AT SITE WITH NO BLEEDING NOTED. DISCHARGE INSTRUCTIONS GIVEN TO PT AND FAMILY, VERBALIZED UNDERSTANDING.
--- NOTE | 2021-03-11 11:41 | NUR ---
TAKEN OUT VIA WHEELCHAIR TO PRIVATE VEHICLE. LEFT FACILITY WITH FAMILY AND ALL PERSONAL BELONGINGS.
== END 2021-03-11 11:40 | disposition home or self-care (01) ==
LOC: D.CATH 07:00
PROVIDERS: ATTEND Internal Medicine Cardiovascular Disease
DX: I25.110 Atherosclerotic heart disease of native coronary artery with unstable angina pectoris (principal); E11.9 Type 2 diabetes mellitus without complications; R06.00 Dyspnea, unspecified